=== PATIENT | male | born 1960 | race Caucasian/White ===

== ENCOUNTER 2022-04-29 08:28 | Outpatient (CLI) | payer OTHER | END 2022-04-29 08:29 | disposition home or self-care (01) | LOC: SCSMRI 08:28 | PROVIDERS: ATTEND Nurse Practitioner Family | DX: M47.26 Other spondylosis with radiculopathy, lumbar region (principal); M51.27 Other intervertebral disc displacement, lumbosacral region | CPT/HCPCS: 72148 ==

== ENCOUNTER 2022-10-31 17:39 | Observation (INO) | payer BC ==
[2022-10-31 18:34] LABS: #Basophils 0.1 thou/uL (0.0-0.2); #Eosinphils 0.1 thou/uL (0.0-0.7); #Monocytes 1.4 thou/uL (0.11-0.59); %Basophils 0.5 % (0.0-1.0); %Eosinophils 0.5 % (0.0-10.0); %Lymphocytes 20.5 % (21.0-51.0); %Monocytes 10.3 % (0.0-10.0); %Neutrophils 67.4 % (42.0-75.0); Hematocrit 48.5 % (42.0-52.0); Hemoglobin 16.3 g/dL (14.0-18.0); Mean Corpuscular HGB CONC 33.6 g/dL (32.0-36.0); Mean Corpuscular Hemoglobin 29.9 pg (27.0-31.0); Mean Platelet Volume 10.9 fL (7.4-10.4); Platelet Count 224 10x3/uL (130-400); RBC Distribution Width 13.1 % (11.5-14.5); Red Blood Cell (RBC) Count 5.45 mill/uL (4.70-6.10); White Blood Cell (WBC) Count 13.4 10x3/uL (4.8-10.8)
[2022-10-31 19:05] LABS: Troponin I 0.012 ng/mL (< 0.028)
[2022-10-31 19:07] LABS: ALT (SGPT) 36 U/L (8-55); AST (SGOT) 24 U/L (5-34); Albumin 4.4 g/dL (3.4-4.8); Alkaline Phosphatase 65 U/L (40-110); Anion Gap 18 mmol/L (10-20); BUN (Urea Nitrogen) 19 mg/dL (8.4-25.7); Bilirubin, Total 0.4 mg/dL (0.2-1.2); Calc. Creatinine Clearance 0 mL/min (70-130); Calcium 9.5 mg/dL (7.8-10.44); Carbon Dioxide 19 mmol/L (23-31); Chloride 103 mmol/L (98-107); Estimated GFR 31; Globulin 3.1 g/dL (2.4-3.5); Glucose 187 mg/dL (80-115); Potassium 4.5 mmol/L (3.5-5.1); Protein, Total 7.5 g/dL (5.8-8.1); Sodium 135 mmol/L (136-145)
[2022-10-31] MEDS ORDERED: Calcium Carbonate 500 MG ChewTAB PO PRN (21:31)
[2022-10-31] MEDS ORDERED: Ondansetron ODT 4 MG TAB PO PRN (21:31)
[2022-10-31] MEDS ORDERED: Senokot S 8.6-50 MG TAB PO PRN (21:31)
[2022-10-31] MEDS ORDERED: Acetaminophen 325 MG TAB PO PRN (21:31)
[2022-10-31] MEDS ORDERED: Lactated Ringer's 1,000 ML IV SCH (21:45)
[2022-10-31 22:28] LABS: Hemoglobin A1c 8.6 % (4.0-6.0)
[2022-10-31] MEDS ORDERED: Bacitracin 1 PK ONE (22:34)
[2022-11-01 00:30] VITALS: BMI 32.1
[2022-11-01 06:20] LABS: #Basophils 0.1 thou/uL (0.0-0.2); #Eosinphils 0.1 thou/uL (0.0-0.7); #Monocytes 1.3 thou/uL (0.11-0.59); #Neutrophils 6.6 thou/uL (1.40-6.50); %Basophils 0.5 % (0.0-1.0); %Lymphocytes 29.6 % (21.0-51.0); %Monocytes 10.9 % (0.0-10.0); %Neutrophils 57.6 % (42.0-75.0); Hematocrit 43.1 % (42.0-52.0); Hemoglobin 14.6 g/dL (14.0-18.0); Mean Corpuscular HGB CONC 33.9 g/dL (32.0-36.0); Mean Corpuscular Hemoglobin 30.2 pg (27.0-31.0); Platelet Count 194 10x3/uL (130-400); RBC Distribution Width 13.3 % (11.5-14.5); Red Blood Cell (RBC) Count 4.84 mill/uL (4.70-6.10); White Blood Cell (WBC) Count 11.5 10x3/uL (4.8-10.8)
[2022-11-01 06:42] LABS: Anion Gap 14 mmol/L (10-20); BUN (Urea Nitrogen) 17 mg/dL (8.4-25.7); Calc. Creatinine Clearance 84 mL/min (70-130); Calcium 9.2 mg/dL (7.8-10.44); Carbon Dioxide 19 mmol/L (23-31); Chloride 105 mmol/L (98-107); Estimated GFR 54; Glucose 246 mg/dL (80-115); Potassium 4.2 mmol/L (3.5-5.1); Sodium 134 mmol/L (136-145)
[2022-11-01] MEDS ORDERED: Famotidine 20 MG TAB PO SCH (09:00)
[2022-11-01 11:17] VITALS: BP 136/77; TEMP 98.5
== END 2022-11-01 12:37 | disposition home or self-care (01) ==
LOC: ERS 17:39 → 2SW 21:03
PROVIDERS: ADMIT Student in an Organized Health Care Education/Training Program; ATTEND Emergency Medicine
DX: R55 Syncope and collapse (principal); N17.9 Acute kidney failure, unspecified; E86.0 Dehydration; D72.829 Elevated white blood cell count, unspecified; E11.9 Type 2 diabetes mellitus without complications; E78.5 Hyperlipidemia, unspecified; Z87.891 Personal history of nicotine dependence
CPT/HCPCS: 36415; 80048; 80053; 82550; 83036; 83735; 84484; 85025; 93005; 96360; G0378; J7120